=== PATIENT | female | born 1935 ===

== ENCOUNTER 2020-06-20 06:55 | Day surgery (SDC) | payer OTHER ==
[~2020-06-20 06:55] MED LIST: CARDURA XL4 MG PO; CHILDREN'S ASPI81 MG PO; CRESTOR5 MG PO; DETROL2 MG PO; GABAPENT PO; HYDRODIURIL12.5 MG PO; NIFEDIPINE20 MG PO; PEPCID PO; PROTONIX40 MG PO
== END 2020-06-20 14:45 | disposition home or self-care (01) ==
LOC: CIR.AMB 06:55
PROVIDERS: ATTEND Surgery
DX: D05.12 Intraductal carcinoma in situ of left breast (principal); Z20.822 Contact with and (suspected) exposure to COVID-19

== ENCOUNTER 2022-08-31 08:36 | Outpatient (CLI) | payer OTHER | END 2022-08-31 08:42 | disposition home or self-care (01) | LOC: RX STUDY 08:36 | PROVIDERS: ATTEND Internal Medicine Gastroenterology | DX: R13.10 Dysphagia, unspecified (principal) ==